=== PATIENT | male | born 1970 | race Two or more races ===

== ENCOUNTER 2021-08-13 22:14 | Emergency (ER) | payer MEDICAID, OTHER ==
[~2021-08-13] VITALS: Ht 175.3 cm; Wt 89.8 kg
--- NOTE | 2021-08-13 22:25 | NUR ---
BIB [facility] C/O DRINKING 1 PINT OF VODKA IN THE AM, C/O SHAKES. AAOX4, BREATHING EVEN AND UNLABORED, NOT IN RESP DISTRESS.
[2021-08-13] MEDS ORDERED: ONDANSETRON 4 MG TAB.RAPDIS PO ONE (23:00)
[2021-08-13] MEDS ORDERED: ONDANSETRON 4 MG TAB.RAPDIS ONE (23:07)
[2021-08-13] MEDS ORDERED: ONDA4TAB5 PO (23:28)
[2021-08-13] MEDS ORDERED: CHLO25CA22 PO (23:28)
[2021-08-13] MEDS ORDERED: CHLORDIAZEPOXIDE HCL 25 MG CAPSULE ONE (23:28)
[2021-08-13] MEDS ORDERED: CHLORDIAZEPOXIDE HCL 25 MG CAPSULE PO ONE (23:30)
--- NOTE | 2021-08-13 23:37 | NUR ---
PT AAOX4, BREATHING EVEN AND UNLABORED.
[2021-08-13 23:44] VITALS: BP 156/83
--- NOTE | 2021-08-13 23:45 | NUR ---
Patient discharged to home in stable condition. Written and verbal after care instructions given. Patient verbalizes understanding of instruction.
== END 2021-08-13 23:46 | disposition home or self-care (01) ==
LOC: EDBD 22:17 → ER 22:17
DX: F10.239 Alcohol dependence with withdrawal, unspecified (principal); Z60.2 Problems related to living alone; Y90.0 Blood alcohol level of less than 20 mg/100 ml
CPT/HCPCS: 36415; 80320; 99283; Q0162; G0480